=== PATIENT | female | born 1990 | race Caucasian/White ===

== ENCOUNTER 2017-12-06 17:23 | Emergency (ER) | payer OTHER, MEDICAID ==
[~2017-12-06] VITALS: Ht 157.5 cm; Wt 72.6 kg
[~2017-12-06 17:23] MED LIST: ACETAMINOPHEN-1 EAC1 PO; BUSPIRONE HCL10 MG PO; CIPROFLOXACIN500 M1 PO; CLEOCIN HCL150 MG PO; CLEOCIN HCL300 MG PO; CYMBALTA30 MG PO; DARVOCET-N 1001 EACH PO; IBUPROFEN 800800 M1 PO; IBUPROFEN 800800 MG PO; KEFLEX500 M1 PO; KEFLEX500 MG PO; MIRENA; MONISTAT 11 EACH VG; NAPROSYN500 MG PO; NOHOMEMEDICATIONS; NORCO 5-325 TA1 EACH PO; OMNICEF250 MG/5 M PO; PERCOCET 5-3251 EACH PO; PHENERGAN 25 MG25 M1 PO; PREDNISONE50 MG PO; PROMACTA50 MG PO; RITUXAN100 MG/10 IV; ROXICET 5-325 OR5 ML PO; TESSALON200 MG PO; TRAMADOL 50 MG50 MG PO; VISTARIL 25 MG25 M1 PO; ZPAK PO; magic mouth wash PO
[2017-12-06 18:22] LABS: ABSOLUTE BASOPHILS 0.1 thou/uL (0.0-0.2); ABSOLUTE EOSINOPHILS 0.3 thou/uL (0.0-0.7); ABSOLUTE LYMPHOCYTES 3.5 thou/uL (0.8-5.3); ABSOLUTE MONOCYTES 0.8 thou/uL (0.0-1.2); ABSOLUTE NEUTROPHILS 9.7 thou/uL (1.6-8.1); BASOPHILS 0.8 %; EOSINOPHILS 2.2 %; HEMATOCRIT 41.4 % (37.0-47.0); HEMOGLOBIN 13.8 gm/dL (12.0-15.0); LYMPHOCYTES 24.2 %; MCH 29.9 pg (26.0-34.0); MCHC 33.2 g/dL (28.0-37.0); MCV 89.9 fL (80.0-100.0); MONOCYTES 5.4 %; MPV 7.3 fl. (7.2-11.1); NUCLEATED RBCS 0 /100WBC; PLATELET COUNT* 283 thou/uL (150-400); POLYS 67.4 %; RBC 4.61 mil/uL (4.20-5.00); RDW-CV 13.7 % (10.5-14.5); WBC 14.4 thou/uL (4.0-11.0)
[2017-12-06 18:31] LABS: APTT 27.4 Seconds (25.0-31.3); PROTIME 9.7 Seconds (9.20-11.50)
[2017-12-06 18:37] LABS: CALCIUM 9.4 mg/dL (8.5-10.1); CREATININE 0.6 mg/dL (0.6-1.3)
[2017-12-06 18:42] LABS: TOTAL BILIRUBIN 0.3 mg/dL (<0.1-1.0); TOTAL PROTEIN 7.7 g/dL (6.4-8.2)
[2017-12-06] MEDS ORDERED: ANUSOL-HC25 MG RECTAL (18:57)
[2017-12-06] MEDS ORDERED: ACETAMINOPHEN-1 EAC1 PO (18:57)
[2017-12-06 19:43] VITALS: BP 138/81
--- NOTE | 2017-12-07 11:47 | EKG ---
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 : 1990 Requested By: Anne Navarrete Order Number: [id number] MD: Jorge Kimball Measurements Intervals [place] Rate: 88 P: 51 HI: 118 QRS: 64 QRSD: 102 T: 4 QT: 340 QTc: 412 Interpretive Statements Sinus rhythm Borderline short HI interval RSR' in V1 or V2, right VCD or RVH No previous ECG available for comparison Electronically Signed On 12-07-2017 11:46:53 [employer]YING [employer]ACH[employer] by Jorge Kimball [email or web address] <ELECTRONICALLY SIGNED> By: Jorge Kimball MD, [facility] 12/07/17 1146 51 51 Jorge Kimball MD, FACC /EPI
== END 2017-12-06 19:45 | disposition home or self-care (01) ==
LOC: M.ERS 17:23
PROVIDERS: Physician Assistant
DX: K62.5 Hemorrhage of anus and rectum (principal); I95.1 Orthostatic hypotension; D69.3 Immune thrombocytopenic purpura; F17.210 Nicotine dependence, cigarettes, uncomplicated; F12.10 Cannabis abuse, uncomplicated; Z90.710 Acquired absence of both cervix and uterus; Z95.818 Presence of other cardiac implants and grafts; Z98.890 Other specified postprocedural states; Z88.1 Allergy status to other antibiotic agents

== ENCOUNTER 2018-06-03 07:29 | Emergency (ER) | payer OTHER, MEDICAID ==
[~2018-06-03] VITALS: Ht 157.5 cm; Wt 72.6 kg
[~2018-06-03 07:29] MED LIST changes: +ANUSOL-HC25 MG RECTAL
[2018-06-03] MEDS ORDERED: XANAX 0.25 MG0.25 MG PO (07:43)
[2018-06-03] MEDS ORDERED: CELEXA20 MG PO (07:43)
[2018-06-03] MEDS ORDERED: HYDROXYZINE HCL25 M1 PO (07:44)
[2018-06-03] MEDS ORDERED: NORCO 5-325 TA1 EACH PO (07:53)
[2018-06-03] MEDS ORDERED: FLEXERIL PO (07:53)
[2018-06-03 08:30] VITALS: BP 141/92
== END 2018-06-03 08:31 | disposition home or self-care (01) ==
LOC: M.ERS 07:29
DX: S39.012A Strain of muscle, fascia and tendon of lower back, initial encounter (principal); Z90.49 Acquired absence of other specified parts of digestive tract; F17.210 Nicotine dependence, cigarettes, uncomplicated; Z88.1 Allergy status to other antibiotic agents; W19.XXXA Unspecified fall, initial encounter; Y93.02 Activity, running; Y92.89 Other specified places as the place of occurrence of the external cause; Y99.8 Other external cause status

== ENCOUNTER 2018-10-23 18:07 | Emergency (ER) | payer OTHER ==
[~2018-10-23] VITALS: Ht 157.5 cm; Wt 77.1 kg
[~2018-10-23 18:07] MED LIST changes: +CELEXA20 MG PO; +FLEXERIL PO; +HYDROXYZINE HCL25 M1 PO; +XANAX 0.25 MG0.25 MG PO
[2018-10-23 18:22] VITALS: BP 124/79
[2018-10-23] MEDS ORDERED: CYCLOBENZAPRINE5 MG PO (18:25)
[2018-10-23] MEDS ORDERED: NORCO 5-325 TA1 EACH PO (18:29)
[2018-10-23] MEDS ORDERED: MEDROLDOSEPACK PO (18:29)
== END 2018-10-23 18:41 | disposition home or self-care (01) ==
LOC: M.ERS 18:07
DX: S29.012A Strain of muscle and tendon of back wall of thorax, initial encounter (principal); F17.210 Nicotine dependence, cigarettes, uncomplicated; Z90.49 Acquired absence of other specified parts of digestive tract; Z88.1 Allergy status to other antibiotic agents; Z98.890 Other specified postprocedural states; X58.XXXA Exposure to other specified factors, initial encounter; Y93.89 Activity, other specified; Y92.89 Other specified places as the place of occurrence of the external cause; Y99.8 Other external cause status

== ENCOUNTER 2018-12-06 12:56 | Emergency (ER) | payer OTHER ==
[~2018-12-06] VITALS: Ht 157.5 cm; Wt 79.8 kg
[~2018-12-06 12:56] MED LIST changes: +CYCLOBENZAPRINE5 MG PO; +MEDROLDOSEPACK PO
[2018-12-06 13:31] LABS: URINE BILIRUBIN NEGATIVE (Negative); URINE BLOOD TRACE (Negative); URINE CLARITY CLEAR; URINE COLOR YELLOW; URINE GLUCOSE-RANDOM NEGATIVE (Negative); URINE KETONES NEGATIVE (Negative); URINE LEUKOCYTES-REFLEX NEGATIVE (Negative); URINE NITRITE-REFLEX NEGATIVE (Negative); URINE PROTEIN NEGATIVE (Negative); URINE SPECIFIC GRAVITY >= 1.030 (1.005-1.030); URINE UROBILINOGEN 0.2 E.U./dl (0.2-1.0)
[2018-12-06] MEDS ORDERED: MACROBID 100 M100 M1 PO (13:40)
[2018-12-06] MEDS ORDERED: PYRIDIUM100 M1 PO (13:40)
[2018-12-06 13:48] VITALS: BP 144/91
== END 2018-12-06 13:49 | disposition home or self-care (01) ==
LOC: M.ERS 12:56
PROVIDERS: Nurse Practitioner Family
DX: N30.90 Cystitis, unspecified without hematuria (principal); F17.210 Nicotine dependence, cigarettes, uncomplicated; Z88.1 Allergy status to other antibiotic agents; Z90.81 Acquired absence of spleen; Z90.89 Acquired absence of other organs; Z90.49 Acquired absence of other specified parts of digestive tract

== ENCOUNTER 2019-03-21 11:08 | Emergency (ER) | payer OTHER, MEDICAID ==
[~2019-03-21] VITALS: Ht 157.5 cm; Wt 72.6 kg
[~2019-03-21 11:08] MED LIST changes: +MACROBID 100 M100 M1 PO; +PYRIDIUM100 M1 PO
[2019-03-21] MEDS ORDERED: CELEXA20 MG PO (11:26)
[2019-03-21] MEDS ORDERED: CYCLOBENZAPRINE5 MG PO (11:26)
[2019-03-21] MEDS ORDERED: XANAX 0.5 MG0.5 MG PO (11:26)
[2019-03-21] MEDS ORDERED: NAPROSYN500 MG PO (12:48)
[2019-03-21] MEDS ORDERED: ACETAMINOPHEN-1 EAC1 PO (12:48)
[2019-03-21 13:26] VITALS: BP 125/94
== END 2019-03-21 13:26 | disposition home or self-care (01) ==
LOC: M.ERS 11:08
DX: S16.1XXA Strain of muscle, fascia and tendon at neck level, initial encounter (principal); S00.03XA Contusion of scalp, initial encounter; S70.02XA Contusion of left hip, initial encounter; R07.81 Pleurodynia; Z90.49 Acquired absence of other specified parts of digestive tract; F17.210 Nicotine dependence, cigarettes, uncomplicated; Z88.1 Allergy status to other antibiotic agents; Y04.2XXA Assault by strike against or bumped into by another person, initial encounter; Y93.89 Activity, other specified; Y92.89 Other specified places as the place of occurrence of the external cause; Y99.8 Other external cause status

== ENCOUNTER 2020-07-26 08:47 | Emergency (ER) | payer OTHER ==
[~2020-07-26] VITALS: Ht 157.5 cm; Wt 77.1 kg
[~2020-07-26 08:47] MED LIST changes: +XANAX 0.5 MG0.5 MG PO
[2020-07-26] MEDS ORDERED: IBUPROFEN 600600 M1 PO (10:11)
[2020-07-26] MEDS ORDERED: Magic Mouthwash SWISH&SPIT (10:11)
[2020-07-26 10:18] VITALS: BP 118/57
== END 2020-07-26 10:19 | disposition home or self-care (01) ==
LOC: M.ERS 08:47
DX: J02.9 Acute pharyngitis, unspecified (principal); F17.210 Nicotine dependence, cigarettes, uncomplicated; Z88.1 Allergy status to other antibiotic agents; Z90.49 Acquired absence of other specified parts of digestive tract; Z90.89 Acquired absence of other organs